=== PATIENT | male | born 1960 | race African-American/Black ===

== ENCOUNTER 2019-08-12 06:42 | Day surgery (SDC) | payer MEDICARE ==
[~2019-08-12 06:42] MED LIST: ACETAMINOPHEN 1,000 MG/100 ML BTL IVPB ONE; CEFAZOLIN 2 Gram 2 GM/50 ML BAG IVPB ONE
[2019-08-12] MEDS ORDERED: LIDOCAINE 2% MDV (20MG/ML) 20ML VIAL IV ONE (06:43)
[2019-08-12] MEDS ORDERED: BUPIVACAINE 0.25% MPF 30ML VIAL IVP ONE (06:43)
[2019-08-12] MEDS ORDERED: ONDANSETRON HCL IV 4 MG/2 ML VIAL IVP ONE (06:43)
[2019-08-12] MEDS ORDERED: PROPOFOL 10 MG/ML VIAL IV ONE (06:43)
[2019-08-12] MEDS ORDERED: KETOROLAC 30 MG/ML VIAL IVP ONE (06:43)
[2019-08-12] MEDS ORDERED: SEVOFLURANE 250 ML INH ONE (06:43)
[2019-08-12] MEDS ORDERED: DEXAMETHASONE 4 MG/ML 1ML VIAL IVP ONE (06:43)
[2019-08-12] MEDS ORDERED: BUPIVACAINE LIPOSOME/PF 133MG/10ML VIAL IV ONE (06:43)
[2019-08-12] MEDS ORDERED: MIDAZOLAM HCL 2MG/2ML VIAL IV ONE (06:43)
[2019-08-12] MEDS ORDERED: RINGERS SOLUTION,LACTATED 1,000 ML IV ONE ×2 (07:20→10:15)
[2019-08-12] MEDS ORDERED: EPINEPHRINE 1 MG/ML AMPUL IM ONE (09:52)
--- NOTE | 2019-08-12 12:38 | Operative Note ---
DATE OF SURGERY: 08/12/2019 SURGEON: Manav Mccallum D.O. REFERRING PHYSICIAN: Alvarez Maier D.O. PREOPERATIVE DIAGNOSIS: 1. TEAR OF THE RIGHT ROTATOR CUFF. 2. IMPINGEMENT SYNDROME RIGHT SHOULDER. 3. TEAR OF THE BICEPS TENDON RIGHT SHOULDER. POSTOPERATIVE DIAGNOSIS: 1. TEAR OF THE RIGHT ROTATOR CUFF. 2. IMPINGEMENT SYNDROME RIGHT SHOULDER. 3. TEAR OF THE BICEPS TENDON RIGHT SHOULDER. OPERATION: 1. ARTHROSCOPIC REPAIR OF THE RIGHT ROTATOR CUFF. 2. ARTHROSCOPIC SUBACROMIAL DECOMPRESSION AND ACROMIOPLASTY RIGHT SHOULDER. 3. ARTHROSCOPIC BICEPS TENOTOMY RIGHT SHOULDER. DESCRIPTION: This 59-year-old male was taken to the Operating Room and placed in a supine position on the operating room table. A general anesthetic was administered. He was placed in the beach chair position with all bony prominences well padded and head well secured. The right shoulder was prepped with Hibiclens and draped in the usual sterile fashion. A posterior portal was established in the glenohumeral joint and initial evaluation of the joint demonstrated normal appearance of the glenoid cavity and the glenohumeral articulation appeared to be essentially normal with very minimal scuffing of the articular cartilage of the glenoid. The subscapularis tendon was seen to be partially disrupted, I did not see any retracted fibers. The glenohumeral ligaments appear to be normal. There was disruption of the biceps tendon with significant loss of continuity of mostly anterior and superior fibers. We performed a biceps tenotomy at the attachment site. The supraspinatus and infraspinatus were seen to be disrupted and this was debrided from the articular surface. We then placed the scope in the subacromial space and thorough subacromial decompression and acromioplasty was performed. We then debrided the torn supraspinatus and the anterior portions of the infraspinatus and we then proceeded to repair this tear utilizing a modification of the SpeedBridge Technique via Arthrex. We subsequently placed two 4.75 swivel lock anchors adjacent to the articular cartilage, one at the anterior and one at the posterior margin of the tear. The sutures attached were then shuttled through the rotator cuff. Subsequently, we also passed a horizontal mattress in between the two and at the completion and after debriding the tuberosity we were able to take a single limb of each one of these sutures and then placed through it third swivel locking anchor which was placed inferior to the anterior anchor. Traction on these sutures was then performed and brought to cuff down to its anatomical footprint and the anchor was impaled and the sutures cut. The remaining three tails of suture were placed through a fourth swivel locking anchor which was placed inferior to the posterior anchor and again traction placed on the sutures to bring the cuff down tightly to the footprint. The sutures were cut and the wound inspected. It was seen to be satisfactory. The wound was irrigated with lactated Ringer's solution, suctioned and the instruments were removed. The portals were closed with 4-0 nylon suture, one anterior, one posterior, and one lateral portal were used for the procedure. After sterile dressings were applied he was subsequently placed in an UltraSling and taken to the Recovery Room in satisfactory condition. JOB NUMBER: [id number] MTDD
== END 2019-08-12 10:58 | disposition home or self-care (01) ==
LOC: SUR 06:42
PROVIDERS: ATTEND Orthopaedic Surgery
DX: M75.121 Complete rotator cuff tear or rupture of right shoulder, not specified as traumatic (principal); M75.21 Bicipital tendinitis, right shoulder; M75.41 Impingement syndrome of right shoulder
CPT/HCPCS: 29827; 29828; 29826; 01630; 64415; 76942; J1885; J2405; J0690; C9290; J0171; J7120